=== PATIENT | female | born 1980 | race African-American/Black ===

== ENCOUNTER 2017-02-12 14:30 | Inpatient (IN) | payer BC, MEDICAID ==
[~2017-02-12] VITALS: Ht 162.6 cm; Wt 113.4 kg
[~2017-02-12 14:30] MED LIST: ALBU6.7H IH; AMLO2.5T45 PO; ASPI-1160 PO; FERR-63 PO; FURO-152 PO; LOSA25TA12 PO; METO-396 PO; SIMV20TA6 PO
[2017-02-12 16:13] LABS: HCG SCREEN NEGATIVE
[2017-02-12 16:14] LABS: BASOPHILS % 1.2 % (0.0-2.0); HEMATOCRIT. 50.3 % (36.0-48.0); HEMOGLOBIN. 15.3 g/dL (12.0-16.0); LYMPHOCYTES % 16.4 % (20.0-50.0); MEAN CORPUSCULAR VOLUME 85.3 fL (81.0-99.0); MEAN PLATELET VOLUME 8.9 fl (7.4-10.4); MONOCYTES % 10.5 % (2.0-8.0); NEUTROPHILS % 69.9 % (40.0-76.0); PLATELET 180 x1000/uL (130-400); RED CELL DISTRIBUTION WIDTH 20.9 % (11.6-14.6)
[2017-02-12 16:18] LABS: CHLORIDE 102 mEq/L (98-107)
[2017-02-12 16:22] LABS: CARBON DIOXIDE 30 mEq/L (21-32)
[2017-02-12 16:28] LABS: CREATINE KINASE 39 IU/L (26-192); TROPONIN I < 0.02 ng/mL (0.00-0.04)
[2017-02-12] MEDS ORDERED: DEXT 10% WATER 1,000 ML IV ONE (18:10)
[2017-02-12] MEDS ORDERED: DEXTROSE 50% WATER 50ML SYRINGE IV ONE ×3 (18:12→21:00)
[2017-02-12 18:29] LABS: CLARITY URINE CLOUDY (CLEAR); COLOR URINE DARK YELLOW (YELLOW); GLUCOSE URINE NEGATIVE (NEGATIVE); KETONES URINE NEGATIVE (NEGATIVE); LEUKOCYTE ESTERASE URINE 2+ (NEGATIVE); NITRITE URINE NEGATIVE (NEGATIVE); OCCULT BLOOD URINE 1+ (NEGATIVE); PROTEIN URINE TRACE (NEGATIVE); SPECIFIC GRAVITY URINE 1.023 (1.005-1.030)
[2017-02-13] VITALS (7 sets, daily range): BP systolic 99–121; BP diastolic 51–79
[2017-02-13] MEDS ORDERED: DEXTROSE 50% WATER 50ML SYRINGE IV PRN (02:00)
[2017-02-13] MEDS: BLOOD SUGAR DIAGNOSTIC STRIP TEST SCH ×4 (07:42→20:32)
[2017-02-13] MEDS: ENOXAPARIN 30MG/0.3ML SYR SUBCUT SCH ×3 (08:08→20:33)
[2017-02-13] MEDS: AMLODIPINE 2.5MG TABLET PO SCH (09:30)
[2017-02-13] MEDS: ASPIRIN 81MG TABLET PO SCH (11:22)
[2017-02-13] MEDS: FERROUS SULFATE 325MG TABLET PO SCH ×2 (11:22→17:14)
[2017-02-13] MEDS: DEXT 10% WATER 1,000 ML IV SCH (11:34)
[2017-02-13] MEDS: FUROSEMIDE 20MG TABLET PO SCH (17:14)
[2017-02-13] MEDS ORDERED: GLIM2TAB2 PO (19:03)
[2017-02-14] VITALS: BP 96/68
[2017-02-14] MEDS: DEXT 10% WATER 1,000 ML IV SCH (02:55)
[2017-02-14] MEDS: BLOOD SUGAR DIAGNOSTIC STRIP TEST SCH ×4 (06:28→20:45)
[2017-02-14 08:00] VITALS: BP 95/59
[2017-02-14] MEDS: ENOXAPARIN 30MG/0.3ML SYR SUBCUT SCH ×2 (09:00→20:42)
[2017-02-14] MEDS: FERROUS SULFATE 325MG TABLET PO SCH ×3 (09:12→17:47)
[2017-02-14] MEDS: FUROSEMIDE 20MG TABLET PO SCH ×2 (09:12→17:47)
[2017-02-14] MEDS: LOSARTAN POTASSIUM 25 MG TABLET PO SCH (09:13)
[2017-02-14] MEDS: AMLODIPINE 2.5MG TABLET PO SCH (09:13)
[2017-02-14] MEDS: ASPIRIN 81MG TABLET PO SCH (09:14)
[2017-02-14 12:00] VITALS: BP 94/55
[2017-02-14 16:00] VITALS: BP 101/60
[2017-02-14 20:00] VITALS: BP 98/57
[2017-02-15] VITALS: BP 96/61
[2017-02-15 04:00] VITALS: BP 103/74
[2017-02-15] MEDS: BLOOD SUGAR DIAGNOSTIC STRIP TEST SCH ×2 (06:36→11:54)
[2017-02-15 06:49] LABS: HEMATOCRIT. 46.7 % (36.0-48.0); HEMOGLOBIN. 14.1 g/dL (12.0-16.0); MEAN CORPUSCULAR HEMOGLOBIN 25.7 pg (28.0-32.0); MEAN PLATELET VOLUME 8.5 fl (7.4-10.4); PLATELET 169 x1000/uL (130-400); RED BLOOD CELL COUNT 5.49 mill/uL (4.2-5.4); RED CELL DISTRIBUTION WIDTH 20.7 % (11.6-14.6)
[2017-02-15 07:21] LABS: CHLORIDE 97 mEq/L (98-107)
[2017-02-15 07:28] LABS: CARBON DIOXIDE 33 mEq/L (21-32)
[2017-02-15 08:00] VITALS: BP 96/57
[2017-02-15] MEDS: ENOXAPARIN 30MG/0.3ML SYR SUBCUT SCH (09:00)
[2017-02-15] MEDS: AMLODIPINE 2.5MG TABLET PO SCH (09:00)
[2017-02-15] MEDS: FUROSEMIDE 20MG TABLET PO SCH (09:22)
[2017-02-15] MEDS: LOSARTAN POTASSIUM 25 MG TABLET PO SCH (09:22)
[2017-02-15] MEDS: ASPIRIN 81MG TABLET PO SCH (09:22)
[2017-02-15] MEDS: FERROUS SULFATE 325MG TABLET PO SCH ×2 (09:22→12:30)
[2017-02-15 12:00] VITALS: BP 114/70
[2017-02-15 16:00] VITALS: BP 104/75
[2017-02-15 16:39] LABS: PLATELET ESTIMATE NORMAL
[2017-02-15 17:00] VITALS: BP 104/75
== END 2017-02-15 18:13 | disposition home or self-care (01) | DRG 52 ==
LOC: ER 14:31 → 5WST 19:50 → ENRESERV 20:42 → CANRESERV 20:42 → ENRESERV 20:45
PROVIDERS: ADMIT Internal Medicine; ATTEND Internal Medicine
DX: G93.41 Metabolic encephalopathy (principal); E11.649 Type 2 diabetes mellitus with hypoglycemia without coma; I50.9 Heart failure, unspecified; I11.0 Hypertensive heart disease with heart failure; F79 Unspecified intellectual disabilities; E78.00 Pure hypercholesterolemia, unspecified; J44.9 Chronic obstructive pulmonary disease, unspecified; Z79.899 Other long term (current) drug therapy; Z79.82 Long term (current) use of aspirin
CPT/HCPCS: 36415; 80048; 80053; 81001; 82550; 82962; 83036; 84484; 84703; 85025; 93005; 96374; 96376; 99285; J1650